=== PATIENT | male | born 1965 | race Caucasian/White ===

== ENCOUNTER → 2025-06-22 | Outpatient (CLI) | payer OTHER ==
[~2025-06-22] MED LIST: ACET325 PO; ASPI81CH PO; CEPH500 PO; GABA300 PO; HYDACE5 PO; Prednisone20 MG PO; TIZANIDINE HCL2 MG
[2025-06-22 12:59] LABS: White Blood Cells, Urine 0-2 /hpf (0-5)
== END ==
LOC: LAB SHORT 11:44 → LAB 11:44
PROVIDERS: Urology
DX: Z01.812 Encounter for preprocedural laboratory examination (principal); R31.29 Other microscopic hematuria; Z01.810 Encounter for preprocedural cardiovascular examination
CPT/HCPCS: 81015